=== PATIENT | female | born 1980 | race Caucasian/White ===

== ENCOUNTER 2017-11-06 05:55 | Inpatient (IN) | payer OTHER ==
[~2017-11-06] VITALS: Ht 157.5 cm; Wt 78.0 kg
[~2017-11-06 05:55] MED LIST: DOCUSATE SODIU100 MG PO; IBUPROFEN800 MG PO; PERCOCET 325 MG1 TA2 PO; PRENATAL1 TA2 PO
--- NOTE | 2017-11-06 09:04 | History & Physical Pre-Op ---
General Information and HPI MD Statement: I have seen and personally examined RAMONA EPPERSON and documented this H&P. The patient is a 36 year old F who presented with a patient stated chief complaint of previous section [] section. History of Present Illness: 36-year-old 2 para 1001 at 39 weeks gestation with a previous section at term. Patient denies bleeding rupture of membranes headache edema visual changes contractions Allergies/Medications Allergies: Coded Allergies: MDX - Doxycycline (DOXYCYCLINE) (Intermediate, HIVES 09/14/13) MDX - Nitrofurantoin (From MACROBID) (Intermediate, FLU LIKE S/S, BODY PAINS 10/25) Past History Surgical History Pertinent Surgical History: Past Family/Social History Psychosocial History Smoking Status: Never Smoked Review of Systems Review of Systems: 13 point review of systems as stated in HPI Exam & Diagnostic Data Last 24 Hrs of Vital Signs/I&O Intake & Output 11/06 1600 11/06 0800 11/06 0000 Intake Total Output Total Balance Patient 172 lb Weight Physical Exam: petite HEENT anicteric Lungs clear Abdomen soft estimated weight 3600 g Cervix long and closed Extremities +1 edema negative Homans white female Assessment/Plan Assessment/Plan: A term previous section Plan antibiotic section As Ranked By This Provider Problem List: 1.
--- NOTE | 2017-11-06 09:11 | Operative Report ---
Operative/Inv Procedure Report Surgery Date: 11/06/17 Name of Procedure: Repeat low flap transverse section lysis of adhesions Pre-Operative Diagnosis: Previous section Post-Operative Diagnosis: Same uterine window 4 x 6 cm uterus was adhered could not be removed from the abdominal cavity ovaries not visualized Estimated Blood Loss: 500 Surgeon/Computational Geneticist: Olga Mendoza and Dr. Bradford Anesthesia: block Operative/Procedure Note Note: Procedure note patient was taken the operating room placed prone position after adequate anesthesia patient placed in dorsolithotomy position the vagina from dorsal fashion bladder was catheterized at this point patient was returned spine position adequate skin testing was performed for office narcotic spinal I the abdomen was prepped and draped so fashion timeout was performed at this point through an old Pfannenstiel skin incision skin was cut with a knife I was carried down to the rectus fascia using a Bovie hemostasis was apparent blunt dissection of the rectus fascia the bladder was directly underneath the rectus muscle the peritoneum was entered high into the abdomen the low blade the Mo was placed and lower and incision to protect the bladder this point was noted that there was a uterine window on the area of the uterus that had some uterine muscle the uterus was entered nicked I uterus was entered with the back of knife dissected bluntly I the infant was delivered over the abdominal wall after oral and specimen removed from the field the cord was doubly clamped and cut the was handed automatic folder seamer was waiting delivering to aid in resuscitation at this point placenta was delivered manually noted to be intact was wiped clean with 2R last insurance free of membranes was oversewn running locking suture was indicated interrupted [id number] for hemostasis. The left uterine artery had been lacerated and the opening of the uterus and was suture ligated using 3 [id number] hemostasis was apparent the uterus was closed running locking suture of 0 was indicated interrupted [id number] as well as a running locking suture of 0 hemostasis was apparent uses on irrigated copious amounts warm saline I the incision on and found to be hemostatic the muscles reapproximated using 0 the fascia was reapproximated to continue sutures of #1 the skin was reapproximated using a 30 stitch Steri- Strips were applied as well as a sterile dressing after Xeroform patient tolerated this well the urine was clear at the end the case on the patient was transported recovery room awake alert counts correct Findings: Viable female infant three-vessel cord clear fluid 4 x 6 mm uterine window adherent uterus to rectus muscle ovaries not visualized
[2017-11-06] MEDS ORDERED: PERCOCET 5-3251 EACH PO (18:09)
[2017-11-06] MEDS ORDERED: IBUPROFEN800 M1 PO (18:09)
--- NOTE | 2017-11-07 07:47 | PN- Post Delivery/GYN ---
Subjective Subjective: HAD REG DIET WANTS ADKINS OUT Objective Last 24 Hrs of Vital Signs/I&O PER CHART Physical Exam: PE SHORT WF IN NAD ABD SOFT NT FUNDUS FIRM NT INCISION CDI EXT -EDEMA-HOMANS Assessment/Plan Assessment/Plan ASSESS S/P RPT C/S PLAN CONT PPC
[2017-11-07 08:06] LABS: ABSOLUTE BASOPHIL COUNT 0 /CUMM (0.0-0.2); ABSOLUTE EOSINOPHIL COUNT 0 /CUMM (0.0-0.7); ABSOLUTE GRANULOCYTE CT 4.1 /CUMM (1.4-6.5); ABSOLUTE LYMPH COUNT 1.3 /CUMM (1.2-3.4); ABSOLUTE MONOCYTE COUNT 0.4 /CUMM (0.10-0.60); BASOPHIL % 0.3 % (0.0-2.0); EOSINOPHIL % 0.4 % (0-5); GRANULOCYTE % 70.5 % (42.2-75.2); MEAN CORPUSCULAR HGB 29.5 PG (27.0-31.0); MEAN CORPUSCULAR HGB CONC 33.3 G/DL (33.0-37.0); MEAN CORPUSCULAR VOLUME 88.6 FL (81.0-99.0); MEAN PLATELET VOLUME 7.9 FL (7.4-10.4); PLATELET COUNT 163 /CUMM (130-400); RBC DISTRIBUTION WIDTH 13.1 % (11.5-14.5); RED BLOOD CELL CT 3.72 /CUMM (4.20-5.40); WHITE BLOOD CELL COUNT 5.8 /CUMM (4.8-10.8)
--- NOTE | 2017-11-08 10:30 | PN- OBGYN ---
Surgical Brief Attending Note Brief Attending Note: Seen and examined Doing well Wants to breast feed BM noted but minimal Pain controlled on meds Vitals per paper record Lungs clear Abdomen soft and fundus firm VE. Mild pedal edema POD#2 s/p repeat Csection Abdominal binder for added pain control. Pain mgmt strategies reviewed VTE prophylaxis with lovenox GI. Consider michelle tea as digestive aid. Colace as needed or Senna. Breast feeding counseilng and vitamin d benefits reviewed Tdap was received 3 years ago. She is hesitant to get again. Partner was advised to get same. DC home 11/09/17
--- NOTE | 2017-11-09 09:35 | Surgical Discharge Summary ---
Visit Information Visit Dates Admission Date: 11/06/17 Discharge Date: 11/09/17 History of Present Illness Chief Complaint: S/p Repeat Csection Medical History Blood Transfusion Hx: No Neurological: NONE EENT: NONE Cardiovascular: NONE Respiratory: NONE Gastrointestinal: NONE Hepatic: NONE Renal: NONE Musculoskeletal: NONE Psychiatric: NONE Endocrine: NONE Blood Disorders: NONE Cancer(s): NONE [employer] P[employer]ER/Reproductive: NONE History of MRSA: No History of VRE: No History of CDIFF: No Isolation History: Standard Pneumonia Vaccine Status: Never received in past Influenza Vaccine Status Given in past- Date Above Tetanus Status: up to date (Given 3 years ago) Surgical History Pertinent Surgical History: Psychosocial History Where Do You Live? Home Who Do You Live With? Spouse Services at Home: None What is Your Primary Language? Greenlandic Tobacco History: na ETOH Use: denies use Illicit Drug Use History: na Other Addictive Behavior: na Review of Systems: No complaints Hospital Course Course Attending Physician: Mike Pimentel MD Primary Care Physician: Leroy Schafer MD Hospital Course: S/p repeat Csection without complication Complications: None Allergies: Coded Allergies: doxycycline (Intermediate, HIVES 11/06/17) nitrofurantoin (From MACROBID) (Intermediate, FLU LIKE S/S, BODY PAINS 11/06/17) Significant Procedures: LTCS Pertinent Lab Results: See list Disposition Summary Disposition Principal Diagnosis: S/p repeat csection Additional Diagnosis: None Discharge Disposition: home or self care Discharge Instructions General Discharge Information Code Status: Full Code Patient's Diet: regular Patient's Activity: as tolerated Follow-Up Instructions/Appts: 2-3 days for CBC 7-[address] Guardado Medications at Discharge Discharge Medications: Start taking the following new medications: Ibuprofen (Ibuprofen) 800 MG TABLET 800 Milligram ORAL EVERY SIX HOURS NEEDED as needed for UTERINE CRAMPING Qty = 30 No Refills Comments: Last Taken:11/09/17 Time:0700 Oxycodone HCl/Acetaminophen (Percocet 5-325 MG Tablet) 5 MG-325 MG TABLET 1 Tablet ORAL EVERY 4 HOURS NEEDED as needed for PAIN SCALE 4-6 (MODERATE ) Qty = 30 No Refills Comments: Last Taken:11/09/17 Time:0700 Copies To: Wayne Maria MD,Mike Attending MD Review Statement Attending Statement Attending MD Statement: examined this patient Attending Assessment/Plan: Seen and evaluated AVSS No complaints Lungs clear Fundus firm Wound intact Extremities with no homans Neuro intact grossly Breast feeding counseling I will call in tdap for partner as never received same Pain mgmt strategies reviewed. Binder benefits reviewed VTe risks reviewed.
== END 2017-11-09 11:34 | DRG 766 ==
LOC: GNO 05:55
PROVIDERS: Specialist
PROC: 10D00Z1 Extraction of Products of Conception, Low, Open Approach (ICD-10-PCS; principal; 2017-11-06)
DX: O34.211 Maternal care for low transverse scar from previous cesarean delivery (principal); N85.8 Other specified noninflammatory disorders of uterus; Z37.0 Single live birth; Z3A.39 39 weeks gestation of pregnancy
CPT/HCPCS: GNOS; 87086; J0690; J1200; J1650; J1885; J7120